=== PATIENT | male | born 1975 | race Caucasian/White ===

== ENCOUNTER 2016-04-18 10:26 | Day surgery (SDC) | payer OTHER ==
[~2016-04-18 10:26] MED LIST: CEPH500C3 PO; LORTA10 PO
[2016-04-18 10:35] VITALS: BP 154/93; PULSE 88; RESP 20; TEMP 98.2; O2SAT 97
[2016-04-18 11:05] VITALS: BP 150/54; PULSE 53; RESP 18; O2SAT 96
[2016-04-18] MEDS ORDERED: IOHEXOL 300 MG/ML 50 ML BTL (for RAD DIAG) ONE (11:42)
[2016-04-18 11:44] VITALS: BP 149/97; PULSE 74; RESP 20; TEMP 98.1; O2SAT 98
--- NOTE | 2016-04-18 16:51 | RADRPT ---
EXAM DATE/TIME: 04/18/2016 10:51 [facility] COMPARISON: SHUNTOGRAM, November 05, 2012, 10:25. INDICATIONS : Patient with history of hydrocephalus in need of shuntogram. MEDICAL HISTORY : Hydrocephalus, Headaches and dizziness SURGICAL HISTORY : Bilateral hernia repair, Shunt revision ENCOUNTER: Subsequent ACUITY: 3 days PAIN SCORE: 0/10 FLUORO TIME: 2.1 minutes CONTRAST: 2 cc Omnipaque (iohexol) 300 PROCEDURE : 1. Fluoroscopically guided shuntogram. The risks, benefits and alternatives to the procedure were explained and verbal and written consent w as obtained. The site was prepped in sterile fashion. Full sterile technique was used, including ca p, mask, sterile gloves and gown and a large sterile sheet. Hand hygiene and 2% chlorhexidine and/or betadine/alcohol prep was utilized per protocol for cutaneous antisepsis. The skin and subcutaneous tissues were infiltrated with local anesthetic solution. With fluoroscopic guidance the previously placed shunt was injected with a 23 gauge butterfly needle and positive contrast was injected. There was immediate flow of contrast through the intraventricular portion of the shunt into the ventr icular system. Contrast was observed passing through the lower of and extending down the tubing to th e level of the low neck. CONCLUSION: 1. The patient's shunt appears to function normally. Contrast passed through the tubing down to the l evel of the low neck. Ander Damico MD on April 18, 2016 at 16:49 Board Certified Radiologist. This report was verified electronically.
== END 2016-04-18 11:45 | disposition home or self-care (01) ==
LOC: HROP 10:26 → HRIP 10:27 → HROP 11:45
PROVIDERS: ATTEND Psychiatry & Neurology Neurology
DX: G91.9 Hydrocephalus, unspecified (principal)
CPT/HCPCS: 61070; 75809; Q9967

== ENCOUNTER 2016-04-22 08:02 | Inpatient (IN) | payer OTHER ==
[~2016-04-22] VITALS: Ht 185.4 cm; Wt 96.8 kg
[2016-04-22 08:04] VITALS: BP 139/91; PULSE 86; RESP 16; TEMP 98.1; O2SAT 97
[2016-04-22] MEDS ORDERED: SODIUM CHLORIDE 0.9% FLUSH 5 ML FLUSH IVF PRN (08:15)
--- NOTE | 2016-04-22 08:34 | PD ---
HPI Chief Complaint: Altered Mental Status Time Seen by Provider: 08:29 Travel History International Travel<30 days: No Contact w/Intl Traveler<30days: No Traveled to known affect area: No History of Present Illness HPI 40-year-old male with history of NEIGHBORHOOD AIDE shunt which had been revised previously by Dr. Nuñez, presents to the ER today with intermittent course of disorientation, headaches, double vision, had a shuntogram done 4 days ago while trying to follow-up with Dr. Lee which showed slit ventricles, here again today because patient's states that he was more disoriented this morning, forgetful what happened oral last few days, having ataxia. She denies any fevers, or other symptoms. Modifying Factors: None Associated Signs & Symptoms: Increased disorientation, ataxia, forgetfulness, blurry vision Risk Factors: NEIGHBORHOOD AIDE shunt PFSH Past Medical History Cancer: No Cardiovascular Problems: No Cerebrovascular Accident: No Diminished Hearing: No Endocrine: No Genitourinary: No Headaches: Yes (NEIGHBORHOOD AIDE SHUNT) Immune Disorder: No Musculoskeletal: No Neurologic: Yes (hydrocephalus) Psychiatric: No Reproductive: No Respiratory: No Migraines: No Seizures: No Past Surgical History Abdominal Surgery: Yes (bilateral inguinal hernia) Neurologic Surgery: Yes (NEIGHBORHOOD AIDE SHUNT) Pacemaker: No Social History Alcohol Use: No Tobacco Use: No Substance Use: No Allergies-Medications (Allergen,Severity, Reaction): Coded Allergies: No Known Allergies (Unverified , 04/22/16) Reported Meds & Prescriptions Reported Meds & Active Scripts Active No Active Prescriptions or Reported Medications Review of Systems ROS Limitations: Altered Mental Status Physical Exam Narrative GENERAL: Well-nourished, well-developed middle age white male patient who appears mildly lethargic, patient's answers most questions for him. Awake and able to answer questions. SKIN: Warm and dry. HEAD: Normocephalic. EYES: No scleral icterus. No injection or drainage. NECK: Supple, trachea midline. CARDIOVASCULAR: Regular rate and rhythm without murmurs, gallops, or rubs. RESPIRATORY: Breath sounds equal bilaterally. No accessory muscle use. GASTROINTESTINAL: Abdomen soft, non-tender, nondistended. MUSCULOSKELETAL: No cyanosis, or edema. BACK: Nontender without obvious deformity. No CVA tenderness. NEUROLOGICAL: Awake and lethargic. Cranial nerves II through XII intact. Motor and sensory grossly within normal limits. Five out of 5 muscle strength in all muscle groups. Normal speech. No pronator drift. Data Data Last Documented VS Vital Signs Date Time Temp Pulse Resp B/P Pulse Ox O2 Delivery O2 Flow Rate FiO2 04/22/16 08:49 97 Room Air 04/22/16 08:04 98.1 86 16 139/91 Orders Electrocardiogram (04/22/16 08:11) Complete Blood Count With Diff (04/22/16 08:11) Comprehensive Metabolic Panel (04/22/16 08:11) Creatine Kinase (Cpk) (04/22/16 08:11) Prothrombin Time / Inr (Pt) (04/22/16 08:11) Act Partial Throm Time (Ptt) (04/22/16 08:11) Troponin I (04/22/16 08:11) Thyroid Stimulating Hormone (04/22/16 08:11) Urinalysis - C+S If Indicated (04/22/16 08:11) Chest, Single Ap (04/22/16 08:11) Blood Glucose (04/22/16 08:11) Ecg Monitoring (04/22/16 08:11) Iv Access Insert/Monitor (04/22/16 08:11) Oximetry (04/22/16 08:11) Sodium Chloride 0.9% Flush (Ns Flush) (04/22/16 08:15) Ct Brain W/O Iv Contrast(Rout) (04/22/16 08:29) Consult Neurosurgery (04/22/16 ) Labs Laboratory Tests Test 04/22/16 08:20 White Blood Count 10.4 TH/MM3 Red Blood Count 5.45 MIL/MM3 Hemoglobin 15.8 GM/DL Hematocrit 47.0 % Mean Corpuscular Volume 86.3 FL Mean Corpuscular Hemoglobin 29.1 PG Mean Corpuscular Hemoglobin 33.6 % Concent Red Cell Distribution Width 13.0 % Platelet Count 305 TH/MM3 Mean Platelet Volume 7.9 FL Neutrophils (%) (Auto) 63.1 % Lymphocytes (%) (Auto) 30.3 % Monocytes (%) (Auto) 5.6 % Eosinophils (%) (Auto) 0.6 % Basophils (%) (Auto) 0.4 % Neutrophils # (Auto) 6.6 TH/MM3 Lymphocytes # (Auto) 3.1 TH/MM3 Monocytes # (Auto) 0.6 TH/MM3 Eosinophils # (Auto) 0.1 TH/MM3 Basophils # (Auto) 0.0 TH/MM3 CBC Comment DIFF FINAL Differential Comment Prothrombin Time 11.3 SEC Prothromb Time International 1.0 RATIO Ratio Activated Partial 29.8 SEC Thromboplast Time Sodium Level 139 MEQ/L Potassium Level 3.9 MEQ/L Chloride Level 103 MEQ/L Carbon Dioxide Level 28.4 MEQ/L Anion Gap 8 MEQ/L Blood Urea Nitrogen 12 MG/DL Creatinine 1.11 MG/DL Estimat Glomerular Filtration 73 ML/MIN Rate Random Glucose 104 MG/DL Calcium Level 9.1 MG/DL Total Bilirubin 0.4 MG/DL Aspartate Amino Transf 8 U/L (AST/SGOT) Alanine Aminotransferase 27 U/L (ALT/SGPT) Alkaline Phosphatase 69 U/L Total Creatine Kinase 69 U/L Troponin I LESS THAN 0.02 NG/ML Total Protein 8.3 GM/DL Albumin 4.2 GM/DL Thyroid Stimulating Hormone 1.700 uIU/ML [facility] Medical Decision Making Medical Screen Exam Complete: Yes Emergency Medical Condition: Yes Medical Record Reviewed: Yes Interpretation(s) EKG shows NSR, no ST elevation or depression, and no arrhythmias. No significant T-wave inversions. Laboratory Tests Test 04/22/16 08:20 Estimat Glomerular Filtration 73 ML/MIN (>89) Rate Aspartate Amino Transf 8 U/L (15-37) (AST/SGOT) Troponin I LESS THAN 0.02 NG/ML (0.02-0.05) Total Protein 8.3 GM/DL (6.4-8.2) Last [address] 04/22/16 0829 Signed Impressions: Service Date/Time: Friday, April 22, 2016 08:50 - CONCLUSION: 1. Interval increased in the size of the ventricles compared to the previous examination in January, suggesting hydrocephalus and poorly functioning ventriculostomy shunt. Clinical correlation is recommended. 2. Mucosal thickening involving the left maxillary sinus. Elroy Greenberg MD Chest X-Ray 04/22/16 0811 Signed Impressions: Service Date/Time: Friday, April 22, 2016 08:40 - CONCLUSION: No acute cardiopulmonary disease. Elroy Greenberg MD Differential Diagnosis Lethargy, disorientation, blurred vision, ataxiamalfunctioning NEIGHBORHOOD AIDE shunt versus metabolic issues versus dehydration versus other acute intracranial processes Narrative Course Lab work did not indicate significant metabolic issues or dehydration. EKG shows no dysrhythmias. Vital signs are stable in the ER. The patient did not have focal neurological deficits in the ER. CT however does show a worsening hydrocephalus and the case was discussed with Dr. Nuñez who would like the patient to be medically admitted for observation with consult to him. Case was then discussed with Dr. Li for admission. Diagnosis Primary Impression: Hydrocephalus Admitting Information Admitting Physician Requests: Admit Scripts No Active Prescriptions or Reported Meds Zbigniew Nugent MD Apr 22, 2016 08:34
[2016-04-22 08:43] LABS: AUTOMATED NEUTROPHIL # 6.6 TH/MM3 (1.8-7.7); BASOPHIL % 0.4 % (0.0-2.0); EOSINOPHIL # 0.1 TH/MM3 (0-0.4); EOSINOPHIL % 0.6 % (0.0-4.0); HEMO FLAGS DIFF FINAL; LYMPH % 30.3 % (9.0-44.0); LYMPHOCYTE # 3.1 TH/MM3 (1.0-4.8); MEAN CELL VOLUME 86.3 FL (80.0-100.0); MEAN CORPUSCULAR HEMOGLOBIN 29.1 PG (27.0-34.0); MEAN CORPUSCULAR HGB CONC 33.6 % (32.0-36.0); MONO % 5.6 % (0.0-8.0); NEUT % 63.1 % (16.0-70.0); PLATELET COUNT 305 TH/MM3 (150-450); RED BLOOD COUNT 5.45 MIL/MM3 (4.50-5.90); WHITE BLOOD COUNT 10.4 TH/MM3 (4.0-11.0)
[2016-04-22 08:49] VITALS: O2SAT 97
[2016-04-22 08:52] LABS: APTT (PATIENT) 29.8 SEC (24.3-30.1); PROTHROMBIN TIME - PATIENT 11.3 SEC (9.8-11.6)
[2016-04-22 08:57] LABS: ANION GAP 8 MEQ/L (5-15); AST (GOT) 8 U/L (15-37); BICARBONATE 28.4 MEQ/L (21.0-32.0); BLOOD UREA NITROGEN 12 MG/DL (7-18); CHLORIDE 103 MEQ/L (98-107); GLOMERULAR FILTRATION RATE 73 ML/MIN (>89); POTASSIUM 3.9 MEQ/L (3.5-5.1); SODIUM (NA) 139 MEQ/L (136-145)
[2016-04-22 09:08] LABS: ALKALINE PHOSPHATASE 69 U/L (45-117); ALT (GPT) 27 U/L (12-78); CREATINE KINASE 69 U/L (39-308); TOTAL BILIRUBIN ADULT 0.4 MG/DL (0.2-1.0)
--- NOTE | 2016-04-22 09:39 | RADRPT ---
EXAM DATE/TIME: 04/22/2016 08:40 [facility] COMPARISON: No previous studies available for comparison. INDICATIONS: Headache, dizziness, and nausea. MEDICAL HISTORY: Hydrocephalic, shunt SURGICAL HISTORY: Shunt, hernia ENCOUNTER: Initial ACUITY: 3 days PAIN SCORE: 0/10 LOCATION: Bilateral chest FINDINGS: The heart and mediastinal structures are normal. The pulmonary vascularity pattern is normal. The carin ngs are clear. A ventriculoperitoneal shunt traverses the left autumn-thorax. CONCLUSION: No acute cardiopulmonary disease. Elroy Greenberg MD on April 22, 2016 at 9:14 Board Certified Radiologist. This report was verified electronically.
--- NOTE | 2016-04-22 09:59 | RADRPT ---
EXAM DATE/TIME: 04/22/2016 08:50 [facility] COMPARISON: CT BRAIN W/O CONTRAST, January 13, 2013, 11:54. INDICATIONS : Increasing disorientation and headaches for 5 days-patient had shuntogram 4 days ago RADIATION DOSE: 45.11 CTDIvol (mGy) MEDICAL HISTORY : None SURGICAL HISTORY : OVEREDGER shunt ENCOUNTER: Initial ACUITY: 4 - 6 days PAIN SCALE: 5/10 LOCATION: Cranial TECHNIQUE: Multiple contiguous axial images were obtained of the head. Using automated exposure control and adj ustment of the mA and/or kV according to patient size, radiation dose was kept as low as reasonably a chievable to obtain optimal diagnostic quality images. FINDINGS: A ventriculostomy shunt is noted with its tip in the frontal horn of the right lateral ventricle. The ventricles have increased in size compared to the previous examination in January, 013 suggestive of hydrocephalus and poorly functioning shunt. Clinical correlation is recommended. Ther e is no acute hemorrhage, midline shift or extra-axial fluid collections. There is encephalomalacia involvin g the right frontal region which may be related to previous shunt tract. Mucosal thickening is noted involving t he left maxillary sinus. CONCLUSION: 1. Interval increased in the size of the ventricles compared to the previous examination in January, suggesting hydrocephalus and poorly functioning ventriculostomy shunt. Clinical correlation is recommended. 2. Mucosal thickening involving the left maxillary sinus. Elroy Greenberg MD on April 22, 2016 at 9:15 Board Certified Radiologist. This report was verified electronically.
[2016-04-22 10:39] LABS: BACTERIA, URINE RARE /hpf; BLOOD, URINE NEG (NEG); GLUCOSE,URINE NEG (NEG); KETONE, URINE TRACE mg/dL (NEG); MUCUS URINE MANY /lpf (OCC); NITRITE,URINE NEG (NEG); URINE COLOR YELLOW (YELLW/STRAW)
[2016-04-22 10:41] LABS: COMMENT (UR) CATH-CULTURE IND; CULTURE IF INDICATED CATH CULTURE IND
[2016-04-22 11:00] VITALS: BP 110/64; PULSE 58; RESP 18
--- NOTE | 2016-04-22 11:00 | EKG ---
Date Performed: 04/22/2016 Time Performed: 09:08:28 PTAGE: 40 years EKG: Sinus rhythm NORMAL ECG NO PREVIOUS TRACING DOCTOR: Alvin Perez Interpretating Date/Time 04/22/2016 10:59:52
[2016-04-22] MEDS ORDERED: ONDANSETRON HCL 4 MG/2 ML VIAL IV PRN (12:00)
[2016-04-22] MEDS ORDERED: ACETAMINOPHEN 325 MG TAB PO PRN (12:00)
[2016-04-22 13:30] VITALS: BP 130/73; PULSE 68; RESP 18; O2SAT 96
--- NOTE | 2016-04-22 13:46 | PD.CONS ---
[facility] Service Neurosurg Consult Requested By Mj Barajas Reason for Consult evaluate shunt Primary Care Physician Alexander Ahmadi M.D. History of Present Illness 40-year-old male with history of hydrocephalus and a ANATOMICAL EMBALMER shunt, which had been revised previously about 2 years ago. He presents to the ER with intermittent episodes of disorientation, headaches, double vision. he has undergone a shuntogram done 4 days ago. His states that he was more disoriented this morning, forgetful what happened oral last few days, having ataxia. She denies any fevers, or other symptoms. Have been experiencing double vision. Nauseas. No emesis. The brain was done. Neurosurgical consultation was requested Review of Systems Constitutional: COMPLAINS OF: Diaphoretic episodes, Fatigue, Fever, Weight gain , Weight loss, Chills, Dizziness, Change in appetite, Night Sweats Endocrine: DENIES: Heat/cold intolerance, Polydipsia, Polyuria, Polyphagia Eyes: COMPLAINS OF: Blurred vision, Diplopia, DENIES: Eye inflammation, Eye pain, Vision loss, Photosensitivity, Double Vision Ears, nose, mouth, throat: DENIES: Tinnitus, Hearing loss, Vertigo, Nasal discharge, Oral lesions, Throat pain, Hoarseness, Ear Pain, Running Nose, Epistaxis, Sinus Pain, Toothache, Odynophagia Respiratory: DENIES: Apneas, Cough, Snoring, Wheezing, Hemoptysis, Sputum production, Shortness of breath Cardiovascular: DENIES: Chest pain, Palpitations, Syncope, Dyspnea on Exertion , PND, Lower Extremity Edema, Orthopnea, Claudication Gastrointestinal: DENIES: Abdominal pain, Black stools, Bloody stools, Constipation, Diarrhea, Nausea, Vomiting, Difficulty Swallowing, Anorexia Genitourinary: DENIES: Sexual dysfunction, Urinary frequency, Urinary incontinence, Urgency, Hematuria, Dysuria, Nocturia, Penile Discharge, Testicular Pain, Testicular Swelling Musculoskeletal: DENIES: Joint pain, Muscle aches, Stiffness, Joint Swelling, Back pain, Neck pain Hematologic/lymphatic: DENIES: Bruising, Lymphadenopathy Immunologic/allergic: DENIES: Eczema, Urticaria Neurologic: COMPLAINS OF: Abnormal gait, Headache, DENIES: Localized weakness , Paresthesias, Seizures, Speech Problems, Tremor, Poor Balance Psychiatric: DENIES: Anxiety, Confusion, Mood changes, Depression, Hallucinations, Agitation, Suicidal Ideation, Homicidal Ideation, Delusions Past Family Social History Allergies: Coded Allergies: No Known Allergies (Unverified , 04/22/16) Past Medical History hydrocephalus Past Surgical History ANATOMICAL EMBALMER shunt Reported Medications no meds Active Ordered Medications Current Medications IV Flush (NS Flush) 2 ml UNSCH PRN IVF FLUSH AFTER USING IV ACCESS; Start at 08:15 Acetaminophen (Tylenol) 650 mg Q4H PRN PO fever or pain; Start 04/22/16 at 12:00 Ondansetron HCl (Zofran Inj) 4 mg Q6H PRN IV nausea; Start 04/22/16 at 12:00 Family History Non contributory Social History denies etoh, tobbacco, drug use. Works at [employer] Physical Exam Vital Signs Vital Signs Date Time Temp Pulse Resp B/P Pulse Ox O2 Delivery O2 Flow Rate FiO2 04/22/16 11:00 58 18 110/64 04/22/16 08:49 97 Room Air 04/22/16 08:04 98.1 86 16 139/91 97 Physical Exam Mr Castle is alert, awake and oriented to time, place and person. Speech is fluent. Cranial nerve examination: pupils to be equal, round and reactive to light. Extra-ocular movements are intact. Facial motor and sensory function are normal and symmetrical. Gross hearing appears intact. Sternocleidomastoid and trapezius muscles are symmetrical. Other cranial nerves are intact. Neck is soft and supple with a good range of motion without pain. Muscle strength is normal in all muscle groups of both upper and lower extremities. Sensory examination is intact to light touch and pin prick in both the upper and lower extremities. Deep tendon reflexes are symmetrical in both upper and lower extremities. There is a bilateral plantar flexion response. Cerebellar examination is unremarkable, without deficits. Laboratory Laboratory Tests Test 04/22/16 04/22/16 08:20 10:00 White Blood Count 10.4 Red Blood Count 5.45 Hemoglobin 15.8 Hematocrit 47.0 Mean Corpuscular Volume 86.3 Mean Corpuscular Hemoglobin 29.1 Mean Corpuscular Hemoglobin 33.6 Concent Red Cell Distribution Width 13.0 Platelet Count 305 Mean Platelet Volume 7.9 Neutrophils (%) (Auto) 63.1 Lymphocytes (%) (Auto) 30.3 Monocytes (%) (Auto) 5.6 Eosinophils (%) (Auto) 0.6 Basophils (%) (Auto) 0.4 Neutrophils # (Auto) 6.6 Lymphocytes # (Auto) 3.1 Monocytes # (Auto) 0.6 Eosinophils # (Auto) 0.1 Basophils # (Auto) 0.0 CBC Comment DIFF FINAL Differential Comment Prothrombin Time 11.3 Prothromb Time International 1.0 Ratio Activated Partial 29.8 Thromboplast Time Sodium Level 139 Potassium Level 3.9 Chloride Level 103 Carbon Dioxide Level 28.4 Anion Gap 8 Blood Urea Nitrogen 12 Creatinine 1.11 Estimat Glomerular Filtration 73 Rate Random Glucose 104 Calcium Level 9.1 Total Bilirubin 0.4 Aspartate Amino Transf 8 (AST/SGOT) Alanine Aminotransferase 27 (ALT/SGPT) Alkaline Phosphatase 69 Total Creatine Kinase 69 Troponin I LESS THAN 0.02 Total Protein 8.3 Albumin 4.2 Thyroid Stimulating Hormone 1.700 3rd Gen Urine Color YELLOW Urine Turbidity CLEAR Urine pH 6.0 Urine Specific [place] 1.035 Urine Protein TRACE Urine Glucose (UA) NEG Urine Ketones TRACE Urine Occult Blood NEG Urine Nitrite NEG Urine Bilirubin NEG Urine Urobilinogen LESS THAN 2.0 Urine Leukocyte Esterase TRACE Urine RBC 1 Urine WBC 3 Urine Bacteria RARE Urine Mucus MANY Microscopic Urinalysis Comment CATH-CULTURE IND Date/Time Procedure Status Source Growth 04/22/16 10:00 Urine Culture Received Urine Catheterized Urine Pending Result Diagram: 04/22/16 0820 04/22/16 0820 Imaging Last Impressions Head CT 04/22/16 0829 Signed Impressions: Service Date/Time: Friday, April 22, 2016 08:50 - CONCLUSION: 1. Interval increased in the size of the ventricles compared to the previous examination in January, suggesting hydrocephalus and poorly functioning ventriculostomy shunt. Clinical correlation is recommended. 2. Mucosal thickening involving the left maxillary sinus. Elroy Greenberg MD Chest X-Ray 04/22/16 0811 Signed Impressions: Service Date/Time: Friday, April 22, 2016 08:40 - CONCLUSION: No acute cardiopulmonary disease. Elroy Greenberg MD Attending Statement Neuro. I have reviewed Mr Castle clinical and radiological findings. Start neuro checks in a serial fashion. A shuntogram last week suggested a patent shunt. Will reajust his shunt to lower settings and look for a response. Consider neurology consult. If there is no clinical improvement we will consider to revise the shunt. PT and OT evaluation Nutrition. NPO Renal. monitor closely urine output, BUN and creatinine Endocrine. Monitor serial Acu checks and SSI as needed in detail ID monitor for signs of infection Protonix for stress ulcer prophylaxis Martinez hose and SCD's for DVT prophylaxis Discussed extensively with his at bedside Josh Nuñez MD Apr 22, 2016 13:46
[2016-04-22 15:00] VITALS: BP 130/76; PULSE 73; RESP 18; O2SAT 97
--- NOTE | 2016-04-22 16:37 | HHI.HP ---
HPI Service [facility] Hospitalists Primary Care Physician Alexander Ahmadi M.D. Admission Diagnosis worsening hydrocephalus/WANT AD RECEIVER shunt Chief Complaint: ams/lethargic/headaches Travel History International Travel<30 Days: No Contact w/Intl Traveler <30 Da: No Traveled to Known Affected Are: No History of Present Illness Pt is 40 yo with hx hydrocephalus and vps. He was admitted to [facility] in 2012 for severe h/a and shunt malfunction. It was revised at that time. over past month has had more h/a and double vision. sleeping alot especially over this past weekend. no focal weakness. no fever and no n/v/d. no cp/abdomen pain. no stiff neck and no photophobia. had shunt series last week and was negative and ct head was reported neg for hydrocephalus. now ct today shows new hydrocephalus Review of Systems Other headaches double vision. lethargy and sleepiness. Past Family Social History Past Medical History hydrocephalus and vps with revision. Reported Medications no meds Allergies: Coded Allergies: No Known Allergies (Unverified , 04/22/16) Family History nc Social History no etoh/tob Physical Exam Vital Signs asleep. arousable. oriented and followed commands no nucal rigidity no focal neuro deficits no jvd or bruit heart reg lung cta abd s/nt ext no edema Vital Signs Date Time Temp Pulse Resp B/P Pulse Ox O2 Delivery O2 Flow Rate FiO2 04/22/16 15:00 73 18 130/76 97 Room Air 04/22/16 13:30 68 18 130/73 96 Room Air 04/22/16 11:00 58 18 110/64 04/22/16 08:49 97 Room Air 04/22/16 08:04 98.1 86 16 139/91 97 Laboratory Laboratory Tests Test 04/22/16 04/22/16 08:20 10:00 White Blood Count 10.4 Red Blood Count 5.45 Hemoglobin 15.8 Hematocrit 47.0 Mean Corpuscular Volume 86.3 Mean Corpuscular Hemoglobin 29.1 Mean Corpuscular Hemoglobin 33.6 Concent Red Cell Distribution Width 13.0 Platelet Count 305 Mean Platelet Volume 7.9 Neutrophils (%) (Auto) 63.1 Lymphocytes (%) (Auto) 30.3 Monocytes (%) (Auto) 5.6 Eosinophils (%) (Auto) 0.6 Basophils (%) (Auto) 0.4 Neutrophils # (Auto) 6.6 Lymphocytes # (Auto) 3.1 Monocytes # (Auto) 0.6 Eosinophils # (Auto) 0.1 Basophils # (Auto) 0.0 CBC Comment DIFF FINAL Differential Comment Prothrombin Time 11.3 Prothromb Time International 1.0 Ratio Activated Partial 29.8 Thromboplast Time Sodium Level 139 Potassium Level 3.9 Chloride Level 103 Carbon Dioxide Level 28.4 Anion Gap 8 Blood Urea Nitrogen 12 Creatinine 1.11 Estimat Glomerular Filtration 73 Rate Random Glucose 104 Calcium Level 9.1 Total Bilirubin 0.4 Aspartate Amino Transf 8 (AST/SGOT) Alanine Aminotransferase 27 (ALT/SGPT) Alkaline Phosphatase 69 Total Creatine Kinase 69 Troponin I LESS THAN 0.02 Total Protein 8.3 Albumin 4.2 Thyroid Stimulating Hormone 1.700 3rd Gen Urine Color YELLOW Urine Turbidity CLEAR Urine pH 6.0 Urine Specific [place] 1.035 Urine Protein TRACE Urine Glucose (UA) NEG Urine Ketones TRACE Urine Occult Blood NEG Urine Nitrite NEG Urine Bilirubin NEG Urine Urobilinogen LESS THAN 2.0 Urine Leukocyte Esterase TRACE Urine RBC 1 Urine WBC 3 Urine Bacteria RARE Urine Mucus MANY Microscopic Urinalysis Comment CATH-CULTURE IND Date/Time Procedure Status Source Growth 04/22/16 10:00 Urine Culture Received Urine Catheterized Urine Pending Result Diagram: 04/22/16 0820 04/22/16 0820 Assessment and Plan Problem List: (1) Hydrocephalus Status: Acute Plan: Pt with hydrocephalus hx shunt last revised for malfunction in 2012. Now presents over past month with progressive h/a,double vision, lethargy. Had ct head and shunt series last week neg. Now CT head today with new hydrocephalus. VPS settings adjusted per NSG IF no improvement then revision being contemplated. If improves then d/c tomorrow. Physician Certification 2 Midnight Certification Type: Admission for Inpatient Services Order for Inpatient Services 2The services are ordered in accordance with Medicare regulations or non- Medicare payer requirements, as applicable. In the case of services not specified as inpatient-only, they are appropriately provided as inpatient services in accordance with the 2-midnight benchmark. Estimated LOS (days): 2 2 days is the estimated time the patient will need to remain in the hospital, assuming treatment plan goals are met and no additional complications. Post-Hospital Plan: Home Frank Li MD Apr 22, 2016 16:37
[2016-04-22 20:00] VITALS: BP 111/76; PULSE 89; RESP 20; TEMP 98.4; O2SAT 95
[2016-04-23] VITALS: BP 120/71; PULSE 45; RESP 20; TEMP 97.8; O2SAT 96
[2016-04-23 04:00] VITALS: BP 114/74; PULSE 63; RESP 20; TEMP 97; O2SAT 97
[2016-04-23 08:00] VITALS: BP 103/67; PULSE 63; RESP 18; TEMP 97.2; O2SAT 96
[2016-04-23 12:00] VITALS: BP 128/77; PULSE 89; RESP 18; TEMP 96.1; O2SAT 97
--- NOTE | 2016-04-23 13:37 | HHI.PR ---
Subjective Remarks headache and lethargy resolved. still with double vision Objective Vitals nad oriented awake Vital Signs Date Time Temp Pulse Resp B/P Pulse Ox O2 Delivery O2 Flow Rate FiO2 04/23/16 12:00 96.1 89 18 128/77 97 04/23/16 08:00 97.2 63 18 103/67 96 04/23/16 04:00 97.0 63 20 114/74 97 04/23/16 00:00 97.8 45 20 120/71 96 04/22/16 20:00 98.4 89 20 111/76 95 04/22/16 15:00 73 18 130/76 97 Room Air 04/22/16 04/22/16 04/23/16 15:00 23:00 07:00 Intake Total 240 ml Output Total 0 ml Balance 240 ml Intake Oral 240 ml Output Urine Total 0 ml # Bowel Movements 0 Result Diagram: 04/22/16 0820 04/22/16 0820 A/P Problem List: (1) Hydrocephalus Status: Acute Plan: Pt with hydrocephalus hx shunt last revised for malfunction in 2012. Now presents over past month with progressive h/a,double vision, lethargy. Had ct head and shunt series last week neg. Now CT head on admission with new hydrocephalus. VPS settings adjusted per NSG neuro sx's resolved except for double vision. might just need more time. d/c when ok with nsg. Frank Li MD Apr 23, 2016 13:37
--- NOTE | 2016-04-23 15:48 | HHI.NSPN ---
(Yumiko Villa) Note Status Status: Progress Note (Josh Nuñez MD) Interval History Interval History 04/23: feeling much better, headaches and mental status improved, continues with diploplia (Yumiko Villa) Labs, Micro, & Vital Signs Results Date Time Temp Pulse Resp B/P Pulse Ox O2 Delivery O2 Flow Rate FiO2 04/23/16 12:00 96.1 89 18 128/77 97 04/23/16 08:00 97.2 63 18 103/67 96 04/23/16 04:00 97.0 63 20 114/74 97 04/23/16 00:00 97.8 45 20 120/71 96 04/22/16 20:00 98.4 89 20 111/76 95 04/23/16 07:00 Intake Total 240 ml Output Total 0 ml Balance 240 ml Constitutional Vital Signs Date Time Temp Pulse Resp B/P Pulse Ox O2 Delivery O2 Flow Rate FiO2 04/23/16 12:00 96.1 89 18 128/77 97 04/23/16 08:00 97.2 63 18 103/67 96 04/23/16 04:00 97.0 63 20 114/74 97 04/23/16 00:00 97.8 45 20 120/71 96 04/22/16 20:00 98.4 89 20 111/76 95 04/23/16 07:00 Intake Total 240 ml Output Total 0 ml Balance 240 ml (Yumiko Villa) Review of Systems/Exam Exam Mr. Castle is alert, awake and oriented to time, place and person. Speech is fluent. Cranial nerve examination demonstrates the pupils to be equal, round, and reactive to light. Extra-ocular movements are intact. Facial motor are normal and symmetrical. Sternocleidomastoid and trapezius muscles have normal and symmetrical strength. Other cranial nerves are intact. Neck is soft and supple. Muscle strength is 5/5 in all muscle groups of both upper and lower extremities Sensory examination is intact to light touch in both the upper and lower extremities, symmetrically. Cerebellar examination is intact to [id number] test Gait: ambulating well without ataxia (Yumiko Villa) Medications Current Medications Current Medications Medications (Trade) Dose Ordered Sig/Landry Route PRN Reason Start Time Stop Time Status Last Admin Dose Admin IV Flush (NS Flush) 2 ml UNSCH PRN IVF FLUSH AFTER USING IV ACCESS 04/22/16 08:15 Acetaminophen (Tylenol) 650 mg Q4H PRN PO fever or pain 04/22/16 12:00 Ondansetron HCl (Zofran Inj) 4 mg Q6H PRN IV nausea 04/22/16 12:00 (Yumiko Villa) Medical Decision Making MDM Remarks 40 y/o male with ventriculoperitoneal shunt for hydrocephalus, presented with headaches, diploplia and AMS, CT Brain 04/22/16 showed increased size of ventricles recent shunt tap patent adjustment of MEDICAL STAFF PHYSICIAN shunt to 90 mm H20 on 04/22/16 (Yumiko Villa) Plan Plan Remarks symptoms improving, cont observe overnight, if he continues to do well tomorrow clear for discharge Dr. Nuñez dw patient, , and mother (Yumiko Villa) Attending Statement The exam, history, and the medical decision-making described in the above note were completed with the assistance of the mid-level provider. I reviewed and agree with the findings presented. I attest that I had a [id number] encounter with the patient on the same day, and personally performed and documented my assessment and findings in the medical record. (Josh Nuñez MD) Yumiko Villa Apr 23, 2016 15:48 Josh Nuñez MD Apr 23, 2016 17:47
[2016-04-23 16:00] VITALS: BP 124/79; PULSE 74; RESP 18; TEMP 96.5; O2SAT 96
[2016-04-23 20:04] VITALS: BP 128/79; PULSE 76; RESP 18; TEMP 97.7; O2SAT 100
[2016-04-24 08:26] VITALS: BP 117/84; PULSE 75; RESP 20; TEMP 95.3; O2SAT 99
--- NOTE | 2016-04-24 11:28 | HHI.DCPOC ---
Discharge Care Plan Diagnosis: (1) Hydrocephalus Goals to Promote Your Health * To prevent worsening of your condition and complications * To maintain your health at the optimal level Directions to Meet Your Goals Take your medications as prescribed Follow your dietary instruction Follow activity as directed Keep your appointments as scheduled Take your immunizations and boosters as scheduled If your symptoms worsen call your PCP, if no PCP go to Urgent Care Center or Emergency Room Smoking is Dangerous to Your Health. Avoid second hand smoke Call the 24-hour hour crisis hotline for domestic abuse at Frank Li MD Apr 24, 2016 11:28
--- NOTE | 2016-04-24 11:33 | HHI.PR ---
Subjective Remarks double vision resolved Objective Vitals nad lying in bed Vital Signs Date Time Temp Pulse Resp B/P Pulse Ox O2 Delivery O2 Flow Rate FiO2 04/24/16 08:26 95.3 75 20 117/84 99 04/23/16 20:04 97.7 76 18 128/79 100 04/23/16 20:04 97.7 76 18 128/79 100 04/23/16 16:00 96.5 74 18 124/79 96 04/23/16 12:00 96.1 89 18 128/77 97 04/23/16 04/23/16 04/24/16 15:00 23:00 07:00 Intake Total 720 ml 480 ml 240 ml Output Total 0 ml Balance 720 ml 480 ml 240 ml Intake Oral 720 ml 480 ml 240 ml Output Urine Total 0 ml # Voids 4 1 1 # Bowel Movements 0 Result Diagram: 04/22/16 0820 04/22/16 0820 A/P Problem List: (1) Hydrocephalus Status: Acute Plan: Pt with hydrocephalus hx shunt last revised for malfunction in 2012. Now presents over past month with progressive h/a,double vision, lethargy. Had ct head and shunt series last week neg. Now CT head on admission with new hydrocephalus. VPS settings adjusted per NSG neuro sx's resolved discussed with dr Nuñez. d/c and f/u Frank Lewis MD Apr 24, 2016 11:32
== END 2016-04-24 12:48 | disposition home or self-care (01) | DRG 57 ==
LOC: NEPC 08:02 → NEDA 10:22 → OBSVTOIN 12:00 → N05B 16:10
PROVIDERS: ADMIT Hospitalist; ATTEND Hospitalist
DX: G91.9 Hydrocephalus, unspecified (principal); H53.2 Diplopia; Z98.2 Presence of cerebrospinal fluid drainage device; R53.83 Other fatigue; R51 Headache
CPT/HCPCS: 70450; 71010; 80053; 81001; 82550; 84443; 84484; 85025; 85610; 85730; 87086; 93005

== ENCOUNTER 2016-04-29 11:34 | Inpatient (IN) | payer OTHER ==
[~2016-04-29] VITALS: Ht 185.4 cm; Wt 97.9 kg
[2016-04-29 14:00] VITALS: BP 123/78; PULSE 63; RESP 16; TEMP 97.8; O2SAT 99
[2016-04-29] MEDS ORDERED: MORPHINE SULFATE 4 MG/ML INJ IV PRN ×2 (14:15)
[2016-04-29] MEDS ORDERED: ACETAMINOPHEN 325 MG TAB PO PRN (14:15)
[2016-04-29] MEDS ORDERED: ACETAMINOPHEN 650 MG/20.3 ML UDC NG PRN (14:15)
[2016-04-29] MEDS ORDERED: DOCUSATE SODIUM 100 MG/10 ML UDC NG PRN (14:15)
[2016-04-29] MEDS ORDERED: ONDANSETRON HCL 4 MG/2 ML VIAL IV PRN ×2 (14:15→15:00)
[2016-04-29] MEDS ORDERED: RESP: ALBUTEROL 2.5 MG/3 ML NEB (PRN) NEB (14:15)
[2016-04-29] MEDS ORDERED: ACETAMINOPHEN/HYDROcodone 325 MG/10 MG TAB PO PRN ×2 (14:15)
[2016-04-29] MEDS ORDERED: ACETAMINOPHEN 650 MG SUPP PR PRN (14:15)
[2016-04-29] MEDS ORDERED: PANTOPRAZOLE SODIUM 40 MG VIAL IVP PRN (14:15)
--- NOTE | 2016-04-29 14:22 | HHI.HP ---
[facility] Service [facility] Primary Care Physician Alexander Ahmadi M.D. Chief Complaint: Headaches, vision problems History of Present Illness Mr. Castle is a 40-year-old male with a history of hydrocephalus and underwent revision of his MANAGER SPECIALTY shunt with us two years ago. Mr. Castle has had progressive headaches which got worse over the past several months. He then had an episode of lethergy and complaints of diploplia and was taken to [place] ED on 04/22/16. A CT Brain had shows interval enlargement of his ventricles. A shuntogram a week prior showed a patent shunt. We were consulted at that time, and his shunt setting was lowered to 90 mm H20. Following his shunt readjustment Mr. Castle had resolution of his headaches and his vision was also improved, he was subsequently discharged home in stable condition. Today he had complained of recurrent severe headaches, lethargy, not feeling himself, and very blurry vision. He also had some nausea but no vomiting. No focal weakness, incontinence, seizures, fevers or chills. Review of Systems Constitutional: DENIES: Fever, Chills Eyes: COMPLAINS OF: Blurred vision Ears, nose, mouth, throat: DENIES: Vertigo Respiratory: DENIES: Apneas, Hemoptysis, Shortness of breath Cardiovascular: DENIES: Chest pain, Palpitations Gastrointestinal: COMPLAINS OF: Nausea, DENIES: Bloody stools, Vomiting Genitourinary: DENIES: Urinary incontinence Neurologic: COMPLAINS OF: Headache, DENIES: Localized weakness, Seizures Psychiatric: DENIES: Hallucinations Past Family Social History Allergies: Coded Allergies: No Known Allergies (Unverified , 04/22/16) Past Medical History Hydrocephalus with MANAGER SPECIALTY shunt, had revision two years ago Past Surgical History MANAGER SPECIALTY shunt with revision 2 years ago Reported Medications per EMR Active Ordered Medications Current Medications Medications (Trade) Dose Ordered Sig/Landry Route PRN Reason Start Time Stop Time Status Last Admin Dose Admin Sodium Chloride (NS 1000 ml Inj) 1,000 ml @ 100 mls/hr Q10H IV 04/30/16 06:00 Chlorhexidine Gluconate (Hibiclens 4% Top Soln) 1 applic HS TOP 04/29/16 21:00 04/30/16 21:01 Docusate Sodium (Colace) 100 mg BID PO 04/29/16 21:00 Docusate Sodium (Colace Liq) 100 mg BID PRN NG SEE LABEL COMMENTS 04/29/16 14:15 Pantoprazole Sodium (Protonix) 40 mg DAILY PO 04/30/16 09:00 Pantoprazole Sodium (Protonix Inj) 40 mg DAILY PRN IVP SEE LABEL COMMENTS 04/29/16 14:15 Ondansetron HCl (Zofran Inj) 4 mg Q6H PRN IV NAUSEA OR VOMITING 04/29/16 14:15 Acetaminophen/ Hydrocodone Bitart ([place] 10-325 Mg) 1 tab Q4H PRN PO PAIN SCALE 1 TO 5 04/29/16 14:15 Acetaminophen/ Hydrocodone Bitart ([place] 10-325 Mg) 2 tab Q4H PRN PO PAIN SCALE 6 TO 10 04/29/16 14:15 Morphine Sulfate (Morphine Inj) 2 mg Q30M PRN IV PAIN SCALE 1 TO 6 04/29/16 14:15 Morphine Sulfate (Morphine Inj) 4 mg Q1H PRN IV PAIN SCALE 7 TO 10 04/29/16 14:15 Acetaminophen (Tylenol) 650 mg Q4H PRN PO TEMPERATURE > 101.5 F 04/29/16 14:15 Acetaminophen (Tylenol 650 Mg/ 20 ml Liq) 650 mg Q4H PRN NG TEMPERATURE > 101.5 F 04/29/16 14:15 Acetaminophen (Tylenol Supp) 650 mg Q4H PRN [place] TEMPERATURE > 101.5 F 04/29/16 14:15 Family History noncontributory Social History No tobacco, etoh abuse, or illicit drug use. 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 Physical Exam Physical Exam Mr. Castle is awake, awake and oriented to time, place and person. Speech is fluent. Follows commands. He appears to be in discomfort due to headaches. Cranial nerve examination demonstrates the pupils to be equal, round, and reactive to light. Extra-ocular movements are intact. Facial motor and sensory function are normal and symmetrical. The uvula is midline and elevates symmetrically with the soft palate. Sternocleidomastoid and trapezius muscles have normal and symmetrical strength. Other cranial nerves are intact. Neck is soft and supple. Muscle testing reveals normal bulk and tone overall without rigidity, spasticity , fasciculations, or atrophy. Muscle strength is 5/5 in all muscle groups of both upper extremities including deltoid, biceps, triceps, brachioradialis, wrist extension and fast food shift supervisor. In the lower extremities, strength is 5/5 in both iliopsoas, quadriceps, hamstrings, plantar flexion, dorsiflexion, and extensor hallicus longus. Sensory examination is intact to light touch in both the upper and lower extremities, symmetrically. Deep tendon reflexes are 2+ and symmetrical in the biceps, triceps, and brachioradialis, bilaterally, in the upper extremities. In the lower extremities , the patellar and Achilles are 2+, bilaterally. There is a bilateral plantar flexion response. Hoffmanns sign is negative. There is no clonus or other abnormal reflexes noted. Cerebellar examination is intact to [id number] test Attending Statement 40-year-old male with a history of hydrocephalus and ventriculoperitoneal shunt with worsening headaches and visual changes. Obtain CT of the head to assess for any acute pathology. His current shunt may not be functioning well. He may need a shunt revision. Will make nothing by mouth tonight. Neuro: serial neuro checks every 4 hours Protonix for GI prophylaxis. DVT: SCDs and TEDs Respiratory: IS every hour, breathing treatments with nebulizers prn Nutrition: Heart Healthy Diet, NPO tonight at midnight Yumiko Villa Apr 29, 2016 14:22
--- NOTE | 2016-04-29 15:08 | RADRPT ---
EXAM DATE/TIME: 04/29/2016 14:32 [facility] COMPARISON: CT BRAIN W/O CONTRAST, January 13, 2013, 11:54. CT BRAIN W/O CONTRAST, 2016, 8:50. INDICATIONS : Evaluate for hydrocephalus; cephalgia. Vision changes today. RADIATION DOSE: 52.59 CTDIvol (mGy) MEDICAL HISTORY : Hydrocephalus. SURGICAL HISTORY : STRING LASTER shunt. ENCOUNTER: Initial ACUITY: 1 day PAIN SCALE: 5/10 LOCATION: Cranial TECHNIQUE: Multiple contiguous axial images were obtained of the head. Using automated exposure control and adjustment of the mA and/or kV according to patient size, radiation dose was kept as low as reasonably achievable to obtain optimal diagnostic quality images. FINDINGS: Comparing this study to a series of CT scans of the brain dating back to 11/05/12 shunt remains in good position. Ventricles are slightly smaller. Third ventricle is slightly smaller but not approaching the size of the ventricles on 01/13/13. The occipital horns still appear slightly r ounded. There is no parenchymal hemorrhage. There is no extra-axial fluid. Posterior fossa is unrem arkable with a midline fourth ventricle. CONCLUSION: Ventricles continue to decrease in size. Third ventricle remains mildly prominent. Kian Damico MD FACR on April 29, 2016 at 15:01 Board Certified Radiologist. This report was verified electronically.
[2016-04-29 19:58] VITALS: BP 125/71; PULSE 66; RESP 16; TEMP 98; O2SAT 97
[2016-04-29 20:03] LABS: AUTOMATED NEUTROPHIL # 4.7 TH/MM3 (1.8-7.7); BASOPHIL % 0.4 % (0.0-2.0); EOSINOPHIL # 0.2 TH/MM3 (0-0.4); EOSINOPHIL % 2.6 % (0.0-4.0); HEMO FLAGS DIFF FINAL; LYMPH % 38.9 % (9.0-44.0); LYMPHOCYTE # 3.6 TH/MM3 (1.0-4.8); MEAN CELL VOLUME 86.5 FL (80.0-100.0); MEAN CORPUSCULAR HEMOGLOBIN 29.9 PG (27.0-34.0); MEAN CORPUSCULAR HGB CONC 34.5 % (32.0-36.0); MONO % 6.1 % (0.0-8.0); PLATELET COUNT 308 TH/MM3 (150-450); RED BLOOD COUNT 4.74 MIL/MM3 (4.50-5.90); RED CELL DISTRIBUTION WIDTH 13.3 % (11.6-17.2); WHITE BLOOD COUNT 9.1 TH/MM3 (4.0-11.0)
[2016-04-29 20:16] LABS: BICARBONATE 26.8 MEQ/L (21.0-32.0); POTASSIUM 3.8 MEQ/L (3.5-5.1)
[2016-04-29] MEDS: DOCUSATE SODIUM 100 MG CAP PO SCH (21:00)
[2016-04-29] MEDS: CHLORHEXIDINE GLUCONATE 4% SOLN 120 ML BTL TOP SCH (21:10)
[2016-04-29 23:04] LABS: BLOOD, URINE NEG (NEG); CALCIUM OXALATE CRYSTALS,URINE OCC /hpf; COMMENT (UR) CULT NOT INDICATED; CULTURE IF INDICATED CULT NOT INDICATED; GLUCOSE,URINE NEG (NEG); KETONE, URINE NEG (NEG); MUCUS URINE MANY /lpf (OCC); NITRITE,URINE NEG (NEG); SQUAMOUS EPITHELIAL CELL URINE <1 /hpf (0-5); TRANSITIONAL EPI CELLS, URINE <1 /hpf; URINE COLOR YELLOW (YELLW/STRAW)
[2016-04-29 23:55] VITALS: BP 119/69; PULSE 58; RESP 16; TEMP 97.1; O2SAT 94
[2016-04-30 01:38] VITALS: O2SAT 96
[2016-04-30 05:05] VITALS: BP 127/69; PULSE 48; PULSE 64; RESP 16; TEMP 97.5; O2SAT 96
[2016-04-30] MEDS ORDERED: SODIUM CHLOR 0.9% 1000 ML INJ 1,000 ML IV SCH (06:00)
[2016-04-30 07:19] VITALS: O2SAT 96
[2016-04-30] MEDS: ceFAZolin 2 GM PREMIX 50 ML IV SCH ×3 (08:10→15:27)
[2016-04-30] MEDS: VANCOMYCIN INJ 1,000 MG in SODIUM CHLOR 0.9% 250 ML INJ 250 ML IV SCH ×2 (08:15)
[2016-04-30] MEDS ORDERED: VANCOMYCIN HCL 1000 MG VIAL ONE (08:20)
[2016-04-30] MEDS ORDERED: GELFOAM SIZE 100 ONE (08:21)
[2016-04-30] MEDS ORDERED: BACITRACIN TOP OINT 15 GM TUBE ONE (08:21)
[2016-04-30] MEDS ORDERED: THROMBIN (TOPICAL) 5,000 UNIT VIAL ONE (08:21)
[2016-04-30] MEDS ORDERED: GENTAMICIN SULFATE 80 MG/2 ML VIAL ONE (08:21)
[2016-04-30] MEDS ORDERED: SODIUM CHLOR 0.9% 250 ML INJ 250 ML ONE (08:22)
[2016-04-30] MEDS ORDERED: LIDOCAINE 1%/EPINEPHrine 1:100,000 SOLN 20 ML VIAL ONE (08:22)
[2016-04-30] MEDS ORDERED: FAMOTIDINE 20 MG/2 ML VIAL ONE (08:32)
[2016-04-30] MEDS ORDERED: MIDAZOLAM HCL 2 MG/2 ML VIAL ONE (08:40)
[2016-04-30] MEDS ORDERED: SUGAMMADEX SODIUM 200 MG/2 ML VIAL IV PUSH ONE ×2 (08:41)
[2016-04-30] MEDS: PANTOPRAZOLE SOD 40 MG DELAYED RELEASE TAB PO SCH (09:00)
[2016-04-30] MEDS: DOCUSATE SODIUM 100 MG CAP PO SCH ×2 (09:00→20:41)
[2016-04-30] MEDS ORDERED: ACETAMINOPHEN 325 MG TAB PO PRN (12:00)
[2016-04-30] MEDS ORDERED: PROPOFOL 200 MG/20 ML AMP IV ONE (12:00)
[2016-04-30] MEDS ORDERED: MORPHINE SULFATE 4 MG/ML INJ IV PUSH PRN (12:00)
[2016-04-30] MEDS ORDERED: PHENYLEPH/NS 1000 MCG/10 ML SYR IV ONE (12:00)
[2016-04-30] MEDS ORDERED: ACETAMINOPHEN/HYDROcodone 325 MG/10 MG TAB PO PRN ×2 (12:00)
[2016-04-30] MEDS ORDERED: SODIUM CHLORIDE 0.9% FLUSH 5 ML FLUSH IVF PRN (12:00)
[2016-04-30] MEDS ORDERED: ONDANSETRON HCL 4 MG/2 ML VIAL IV PUSH ONE (12:00)
[2016-04-30] MEDS ORDERED: LACTATED RINGER'S 1000 ML INJ 1,000 ML IV ONE (12:00)
[2016-04-30] MEDS ORDERED: fentaNYL CITRATE 250 MCG/5 ML AMP ONE (12:02)
[2016-04-30] MEDS: NS + KCL 20 MEQ INJ 1,000 ML IV SCH ×2 (12:21→21:59)
[2016-04-30] MEDS ORDERED: DO NOT ADM ANY ANTICOAGULANT DRUGS XX PRN (12:45)
[2016-04-30] MEDS: MORPHINE SULFATE 4 MG/ML INJ IV PUSH PRN (13:38)
--- NOTE | 2016-04-30 14:35 | RADRPT ---
EXAM DATE/TIME: 04/30/2016 10:14 [facility] COMPARISON: No previous studies available for comparison. INDICATIONS : Shunt tubing localization. MEDICAL HISTORY : Hydrocephalus. SURGICAL HISTORY : INSTALLATION TECHNICIAN shunt. ENCOUNTER: Subsequent ACUITY: 4 - 6 days PAIN SCORE: Non-responsive. LOCATION: Left upper quadrant FINDINGS: A single view of the abdomen has been performed. There is tubing coiled and was labele d the left side of the abdomen. CONCLUSION: A single view of the abdomen has been performed. There is tubing coiled and was labe led the left side of the abdomen. Roger Madrigal MD on April 30, 2016 at 13:44 Board Certified Radiologist. This report was verified electronically.
[2016-04-30] MEDS ORDERED: HYDR-3583 PO (14:52)
[2016-04-30 15:03] LABS: GROSS BLOOD TUBE #1 2+ (0); SUPERNATE COLOR TUBE #1 HEMOLYZED (CLEAR); WBC TUBE #1 17 /MM3 (0-10)
[2016-04-30 15:04] LABS: CSF LYMPHOCYTES 43 %; CSF MONOCYTES 3 %; CSF NEUTROPHILS 54 %
--- NOTE | 2016-04-30 15:51 | PD.OP ---
Operative Report Date of Surgery: Apr 30, 2016 Preoperative Diagnosis: Hydrocephalus, ventriculoperitoneal shunt malfunction Postoperative Diagnosis: Hydrocephalus, ventriculoperitoneal shunt malfunction Procedure: Placement of a ner ventricular, peritoneal catheter and valve. Revision of ventriculoperitoneal shunt. Anesthesia: general Surgeon: Josh Nuñez Creative Services Designer(s): Darcy Arteaga Operation and Findings: INTRAOPERATIVE FINDINGS:Clear cerebrospinal fluid. Poor function of the ventricular system, valve and coiling with obstruction of the peritoneal catheter INDICATIONS FOR PROCEDURE: Mr Santana is a 40 year old male with history of obstructive hydrocephalus who presented with progressive headaches, visual loss and altered mental status. He had hydrocephalus and his condition was getting progressively worse. He underwent evaluation with evidence of shunt malfuction. A ventriculopertoneal shunt was indicated The [id number] details of the procedure, its indications, alternatives, risks , and potential complications of the surgery were fully discussed with the patient and his family. They fully understood. All their questions were answered. No guarantees were given. They voiced requesting the surgery and signed informed consent.They were offered the alternative of continuing nonsurgical treatment. DETAILS OF THE SURGICAL PROCEDURE: After the induction of general anesthesia, endotracheal intubation was performed. A Mora catheter, bilateral PAOLA hose and sequential compression devices were placed and kept throughout the procedure. The patient was positioned supine on a 30-80 table with the head over a gel doughnut. All pressure points were carefully padded with eggcrate mattress. The right frontotemporal parietal area was shaved prepped and draped in the usual sterile fashion, as well as the neck, chest and abdomen. A skin incision was then made along the previous valve with a 10 blade. Small bleeders were controlled with the bipolar and the previous shunt was exposed. Then the valve was disconnected from the peritoneal catheter and the distal catheter was assessed using a manommeter. The catheter was not patent. The C arm qwas brought to the field and the peritoneal catheter was seen coiled outside the peritoneal cavity. There was no CSF flowing from the valve. The valve was then disconnected, a poor CSF flow was coming from the ventricles with a very slow inconsistent drip. revision of the complete system was indicated. A small incision was made in the patient's left upper quadrant with a #10 blade and the dissection was carried out through the subcutaneous tissue and Jennifer's fascia. The rectus sheath was carefully opened with Metzenbaum scissors and the rectus muscles were split along its fibers. The posterior rectus sheath was elevated and carefully opened. The peritoneum was elevated with mosquitoes and opened in the standard fashion. The peritoneal cavity was visualized and exposed. A pursestring suture was placed around the peritoneal opening. Using a tunneler a subcutaneous tunnel was created connecting the abdominal incision with the planned head incision. A ScratchJr programmable valve has calibrated at a pressure of 100 mmHg and flushed according to the horologist's instructions. The valve was secured to the proximal end of the peritoneal catheter using a 2-0 silk. Then, a ventricular catheter was advanced into the ventricular system. A good flow of cerebrospinal fluid was obtained. The catheter was connected to the valve and the connection secured with a 2-0 silk. Cerebrospinal fluid was noted to drip through the distal end of the peritoneal catheter. The peritoneal catheter was placed in the peritoneal cavity under direct visualization. The pursestring suture was carefully adjusted with special care not to strangulate the catheter. The rectus sheath was closed using interrupted 2-0 Vicryl suture. The Jennifer's fascia was approximated with 3-0 Vicryl, and the subcutaneous with 3-0 Vicryl. The skin was closed with running subcuticular 4-0 Vicryl in the abdomen. The skin incision was closed using interrupted 3-0 Vicryl for the galea and isabell to the skin. At the end of the procedure, the sponge, needle and instrument counts were all correct. The estimated blood was less than 50-70 cc. No blood transfusion was given. No intraoperative complications occurred. The patient received preoperative prophylactic antibiotics. The patient was then extubated and transferred to the recovery room in stable condition. Josh Nuñez MD Apr 30, 2016 15:51
[2016-04-30 16:00] VITALS: BP 139/78; PULSE 81; RESP 18; TEMP 97.6; O2SAT 98
[2016-04-30] MEDS: CHLORHEXIDINE GLUCONATE 4% SOLN 120 ML BTL TOP SCH (20:41)
[2016-04-30] MEDS: SODIUM CHLORIDE 0.9% FLUSH 5 ML FLUSH IVF SCH (20:41)
[2016-04-30 20:56] VITALS: BP 135/79; PULSE 68; RESP 20; TEMP 97.7; O2SAT 98
[2016-05-01 00:19] VITALS: BP 155/89; PULSE 74; RESP 20; TEMP 99.6; O2SAT 96
[2016-05-01] MEDS: ceFAZolin 2 GM PREMIX 50 ML IV SCH ×2 (00:29→08:00)
[2016-05-01] MEDS: MORPHINE SULFATE 4 MG/ML INJ IV PUSH PRN (00:34)
[2016-05-01 04:00] VITALS: BP 123/79; PULSE 73; RESP 20; TEMP 98.3; O2SAT 96
[2016-05-01] MEDS: NS + KCL 20 MEQ INJ 1,000 ML IV SCH (07:59)
[2016-05-01 08:00] VITALS: BP 122/82; PULSE 80; RESP 18; TEMP 98.4; O2SAT 95
--- NOTE | 2016-05-01 08:25 | RADRPT ---
EXAM DATE/TIME: 05/01/2016 08:11 [facility] COMPARISON: CT BRAIN W/O CONTRAST, April 29, 2016, 14:32. INDICATIONS : Post op FIBERGLASS FABRICATOR shunt placement. RADIATION DOSE: 44.96 CTDIvol (mGy) MEDICAL HISTORY : None SURGICAL HISTORY : FIBERGLASS FABRICATOR shunt placement. ENCOUNTER: Initial ACUITY: 1 day PAIN SCALE: 5/10 LOCATION: cranial TECHNIQUE: Multiple contiguous axial images were obtained of the head. Using automated exposure control and adjustment of the mA and/or kV according to patient size, radiation dose was kept as low as reasonably achievable to obtain optimal diagnostic quality images. FINDINGS: There is no evidence of acute cortical infarction, acute hemorrhage, mass effect or midline shift. Sh unt enters the left frontal region with tip crossing the midline lying in the frontal horn of the rig ht lateral ventricle. The ventricles are decreasing in size. Posterior fossa structures are unremarka ble. CONCLUSION: 1. No evidence of acute intracranial pathology. No masses are identified. 2. Decreasing ventricular size when compared with the prior exam Shabbir Mccord MD on May 01, 2016 at 8:21 Board Certified Radiologist. This report was verified electronically.
[2016-05-01] MEDS ORDERED: PANTOPRAZOLE SODIUM 40 MG VIAL IVP SCH (09:00)
[2016-05-01] MEDS: DOCUSATE SODIUM 100 MG CAP PO SCH (09:15)
[2016-05-01] MEDS: PANTOPRAZOLE SOD 40 MG DELAYED RELEASE TAB PO SCH (09:15)
[2016-05-01] MEDS: SODIUM CHLORIDE 0.9% FLUSH 5 ML FLUSH IVF SCH (09:15)
--- NOTE | 2016-05-01 09:53 | HHI.DCPOC ---
Discharge Care Plan Diagnosis: (1) S/P ventriculoperitoneal shunt Goals to Promote Your Health * To prevent worsening of your condition and complications * To maintain your health at the optimal level Directions to Meet Your Goals Take your medications as prescribed Follow your dietary instruction Follow activity as directed Keep your appointments as scheduled Take your immunizations and boosters as scheduled If your symptoms worsen call your PCP, if no PCP go to Urgent Care Center or Emergency Room Smoking is Dangerous to Your Health. Avoid second hand smoke Call the 24-hour hour crisis hotline for domestic abuse at Yumiko Villa May 01, 2016 09:53
--- NOTE | 2016-05-01 09:58 | HHI.DS ---
Discharge Summary Admission Date Apr 29, 2016 at 13:15 Discharge Date: May 01, 2016 Admitting Diagnosis hydrocephalus, s/p revision of ventriculoperitoneal shunt (1) S/P ventriculoperitoneal shunt (2) Hydrocephalus Brief History Mr Castle is a 40 year old male with history of obstructive hydrocephalus who presented with progressive headaches, visual loss and altered mental status. He had hydrocephalus and his condition was getting progressively worse. He underwent evaluation with evidence of shunt malfunction. A ventriculoperitoneal shunt was indicated CBC/BMP: 04/29/16 1853 04/29/16 1853 Significant Findings Laboratory Tests Test 04/29/16 04/29/16 04/30/16 18:53 22:11 10:00 Estimat Glomerular Filtration 73 ML/MIN (>89) Rate Random Glucose 113 MG/DL (74-106) Urine Calcium Oxalate Crystals OCC /hpf (NONE) Urine Mucus MANY /lpf (OCC) CSF Supernatant Color (tube 1) HEMOLYZED (CLEAR) CSF Gross Blood (Tube 1) 2+ (0) CSF WBC (Tube 1) 17 /MM3 (0-10) CSF RBC (Tube 1) 3360 /MM3 (NONE) Imaging Last Impressions Head CT 05/01/16 0000 Signed Impressions: Service Date/Time: Sunday, May 01, 2016 08:11 - CONCLUSION: 1. No evidence of acute intracranial pathology. No masses are identified. 2. Decreasing ventricular size when compared with the prior exam Shabbir Mccord MD Abdomen X-Ray 04/30/16 0000 Signed Impressions: Service Date/Time: Saturday, April 30, 2016 10:14 - CONCLUSION: A single view of the abdomen has been performed. There is tubing coiled and was labeled the left side of the abdomen. Roger Madrigal MD PE at Discharge Mr. Castle is alert, in no apparent distress. Speech is fluent. Mentation intact. Incision is clean and dry, with dressing in place. Cranial nerve examination: pupils to be equal, round and reactive to light. Extra-ocular movements are intact. Facial motor are normal and symmetrical. Gross hearing appears intact. 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 5/5 to both iliopsoas, quadriceps, hamstrings, plantarflexion and dorsiflexion in lower extremities. Respiratory: clear Hospital Course Mr. Castle underwent placement of a ventriculoperitoneal catheter and valve , revision of ventriculoperitoneal shunt on Apr 30, 2016. His surgery went well without any major complications. He has improvement in his symptoms and feeling better. Follow up CT Brain shows satisfactory post-op changes. He will be discharged home in stable conditions. Wound care and activity restrictions and signs and symptoms to watch for were discussed. Pt Condition on Discharge: Stable Discharge Disposition: Discharge Home Discharge Instructions DIET: Follow Instructions for: As Tolerated, No Restrictions ACTIVITIES You can perform: Weight Bearing As May ADDITIONAL Activity Instructio: Avoid strenuous activity, heavy lifting, falls, head trauma. New Medications: Hydrocodone-Acetaminophen (Hydrocodone-Acetaminophen) 10-325 mg Tab 1 TAB PO Q8HR PRN PAIN SCALE 1 TO 10 #90 Ref 0 TAB Yumiko Villa May 01, 2016 09:58
[2016-05-01 10:36] VITALS: O2SAT 96
== END 2016-05-01 11:41 | disposition home or self-care (01) | DRG 32 ==
LOC: N04A 13:15 → N05B 04-30 13:35
PROVIDERS: ADMIT Neurological Surgery; ATTEND Neurological Surgery
PROC: 00160J6 Bypass Cerebral Ventricle to Peritoneal Cavity with Synthetic Substitute, Open Approach (ICD-10-PCS; 2016-04-30)
PROC: 00P60JZ Removal of Synthetic Substitute from Cerebral Ventricle, Open Approach (ICD-10-PCS; principal; 2016-04-30 08:43)
DX: T85.01XA Breakdown (mechanical) of ventricular intracranial (communicating) shunt, initial encounter (principal); G91.1 Obstructive hydrocephalus; Y75.2 Prosthetic and other implants, materials and neurological devices associated with adverse incidents
CPT/HCPCS: 70450; 74000; 76000; 80048; 81001; 82945; 84157; 85025; 87070; 87205; 89051; J0690; J1580; J2250; J2270; J2370; J2405; J3010; J3370; J3480; J7030; J7050; J7120